=== PATIENT | male | born 1970 | race American Indian/Alaskan Native ===

== ENCOUNTER 2017-09-03 10:17 | Emergency (ER) | payer BC ==
--- NOTE | 2017-09-03 11:55 | Emergency Department Report ---
ED General Adult HPI - General Chief complaint: Medical Clearance Stated complaint: STROKE LIKE SYMPTOMS Time Seen by Provider: 09/03/17 11:07 Source: patient Mode of arrival: Ambulatory Limitations: No Limitations - History of Present Illness Initial comments: 47-year-old history of high blood pressure since was total week ago during an admission at [facility] that he had a mild stroke this morning when he was getting out of bed at 745 he started having tingling syndrome to his left face he thought he might encounter numb and minimal bit anxious he started breathing heavily, he did also have some symptoms into his left arm and left leg, he denies any symptoms at present, he recently was started on risk factor modification apparently at [facility] he is currently taking statin as well as metformin and an aspirin, he is chronically on lisinopril, he is come in today because he did have his spell it is now resolved but he was worried maybe something else was going on, his blood pressure also was a bit higher this morning at 159 systolic this worried him, blood pressure now is 134/95 he is here for evaluation of a spell this morning that is now resolved that was possibly numbness to the left side of his body -: Gradual, This morning Location: head, face, left, upper extremity, lower extremity Severity scale (0 -10): 0 Consistency: now resolved Associated Symptoms: denies other symptoms. denies: confusion, chest pain, cough, diaphoresis, fever/chills, headaches, loss of appetite, malaise, nausea/ vomiting, rash, seizure, shortness of breath, syncope, weakness Treatments Prior to Arrival: Aspirin - Related Data Home Medications Medication Instructions Recorded Confirmed Last Taken Lisinopril 1 tab PO DAILY 12/06/14 12/10/14 12/10/14 Previous Rx's Medication Instructions Recorded Last Taken Type Cyclobenzaprine [Flexeril] 10 mg PO BID PRN #20 tablet 12/19/15 Unknown Rx Ibuprofen [Motrin] 800 mg PO Q8HR PRN #30 tablet 12/19/15 Unknown Rx Allergies Allergy/AdvReac Type Severity Reaction Status Date / Time No Known Allergies Allergy Verified 09/03/17 10:20 ED Review of Systems ROS: Stated complaint: STROKE LIKE SYMPTOMS Other details as noted in HPI Comment: All other systems reviewed and negative Constitutional: denies: diaphoresis, fever, malaise Eyes: denies: eye discharge, vision change ENT: denies: dental pain, hearing loss, epistaxis Respiratory: denies: shortness of breath, SOB with exertion, SOB at rest, stridor Cardiovascular: denies: chest pain, palpitations, dyspnea on exertion, orthopnea , edema, syncope Gastrointestinal: denies: abdominal pain, nausea, vomiting, diarrhea, constipation, hematemesis, melena Skin: denies: rash, lesions, change in color, pruritus Neurological: denies: headache, weakness, numbness, paresthesias, confusion, abnormal gait, vertigo Hematological/Lymphatic: denies: easy bleeding, easy bruising, swollen glands ED Past Medical Hx - Past Medical History Previous Medical History?: Yes Hx Hypertension: Yes Hx Asthma: No Hx COPD: No Hx HIV: No - Surgical History Past Surgical History?: No - Social History Smoking Status: Never Smoker Substance Use Type: None - Medications Home Medications: Home Medications Medication Instructions Recorded Confirmed Last Taken Type Lisinopril 1 tab PO DAILY 12/06/14 12/10/14 12/10/14 History Cyclobenzaprine [Flexeril] 10 mg PO BID PRN #20 tablet 12/19/15 Unknown Rx Ibuprofen [Motrin] 800 mg PO Q8HR PRN #30 tablet 12/19/15 Unknown Rx ED Physical Exam - General Limitations: No Limitations General appearance: alert, in no apparent distress, anxious - Head Head exam: Present: atraumatic, normocephalic - Eye Eye exam: Present: normal appearance, PERRL, EOMI - ENT ENT exam: Present: normal exam, normal orophraynx - Neck Neck exam: Present: normal inspection. Absent: tenderness, meningismus - Respiratory Respiratory exam: Present: normal lung sounds bilaterally. Absent: respiratory distress, wheezes, rales, rhonchi, stridor, chest wall tenderness, accessory muscle use, decreased breath sounds, prolonged expiratory - Cardiovascular Cardiovascular Exam: Present: regular rate, normal rhythm - GI/Abdominal GI/Abdominal exam: Present: soft. Absent: distended, tenderness, guarding, rebound, rigid, organomegaly, mass, pulsatile mass - Extremities Exam Extremities exam: Present: normal inspection, normal capillary refill, other ( pulses equal bilaterally) - Back Exam Back exam: Present: normal inspection. Absent: CVA tenderness (R), CVA tenderness (L), muscle spasm, paraspinal tenderness, vertebral tenderness, rash noted - Neurological Exam Neurological exam: Present: alert, oriented X3, CN II-XII intact, normal gait. Absent: motor sensory deficit - Psychiatric Psychiatric exam: Present: normal affect, normal mood - Skin Skin exam: Present: warm. Absent: dry, intact, normal color, rash, cyanosis, diaphoretic, erythema, urticaria, vesicles, petechiae ED Course Vital Signs 09/03/17 10:20 Temperature 98 F Pulse Rate 98 H Respiratory 20 Rate Blood Pressure 134/95 O2 Sat by Pulse 98 Oximetry - Reevaluation(s) Reevaluation #1: 09/03/17 13:59 Patient was evaluated immediately on arrival his symptoms did resolve ED Medical Decision Making - Lab Data Result diagrams: 09/03/17 12:04 09/03/17 12:04 - EKG Data -: EKG Interpreted by Me EKG shows normal: sinus rhythm - EKG Data When compared to previous EKG there are: previous EKG unavailable Interpretation: nonspecific ST-T wave eva, LVH 09/03/17 13:59 nio Acute ischemic change - Radiology Data Radiology results: report reviewed - Medical Decision Making Old records were obtained from [facility] patient did apparently have a full TIA workup he was placed on risk factor modification, unclear if today's episode did represent a recurrent TIA versus some other type of spell, he stated state he was anxious and hyperventilating, physical exam was totally normal. No focal neural findings, he had no sensory deficits appreciated no motor deficits or cerebellar findings appreciated, he will need to follow up with his regular doctor, unclear etiology for today's spell however and well [facility] that he did not apparently find any type of interventions otherwise required and placed him on only risk factor modification he will be encouraged to continue that and see his regular doctor and return immediately if new alarming symptoms again is producing over the physical exam is negative at this time no signs of CVA at this time, the laboratory studies and CT head are unremarkable and unchanged from previous did verbalize understanding of need for continue his current medications attempting to lose weight and maintain his blood pressure he was aware of risks of diabetes and blood pressure and hyperlipidemia and did verbalize understanding including heart problems kidney problems stroke and Critical care attestation.: If time is entered above; I have spent that time in minutes in the direct care of this critically ill patient, excluding procedure time. ED Disposition Clinical Impression: Numbness and tingling Disposition: DC-01 TO HOME OR SELFCARE Is pt being admited?: No Condition: Stable Instructions: Paresthesia (ED), Transient Ischemic Attack (ED) Additional Instructions: See her regular doctor Dr. Nevarez and return immediately if new alarming symptoms or call 911 Referrals: PRIMARY CARE, [Primary Care Provider] - 3-5 Days COLETTE RUBIN MD [Staff Physician] - 3-5 Days Time of Disposition: 14:04
[2017-09-03 12:15] LABS: Basophils % (Auto) 0.8 % (0.0-1.8); Eosinophils # (Auto) 0.1 K/mm3 (0.0-0.4); Eosinophils % (Auto) 1.1 % (0.0-4.3); Hematocrit 47.1 % (35.5-45.6); Hemoglobin 15.9 gm/dl (11.8-15.2); Lymphocytes # (Auto) 2.1 K/mm3 (1.2-5.4); Lymphocytes % (Auto) 34.7 % (13.4-35.0); Mean Corpuscular HGB Conc 34 % (32-34); Mean Corpuscular Hemoglobin 30 pg (28-32); Mean Corpuscular Volume 89 fl (84-94); Monocytes # (Auto) 0.5 K/mm3 (0.0-0.8); Monocytes % (Auto) 7.6 % (0.0-7.3); Platelet Count 278 K/mm3 (140-440); Red Cell Distribution Width 13.2 % (13.2-15.2)
--- NOTE | 2017-09-03 12:30 | Cat Scan Report ---
FINAL REPORT EXAM: CT HEAD/BRAIN WO CON HISTORY: numbness TECHNIQUE: CT examination of the head without IV contrast PRIORS: None. FINDINGS: No acute air-fluid level visualized in the included air-filled sinuses. Bone windows demonstrate no acute fracture. The brain is without mass, mass effect, hemorrhage, or acute infarct. There is no extra-axial intracranial bleed, brain bleed, or midline shift. The ventricles and sulci are age-appropriate. IMPRESSION: No acute CVA, intracranial bleed, or brain mass
[2017-09-03 12:34] LABS: Alanine Aminotransferase 31 units/L (7-56); BUN/Creatinine Ratio 12; Blood Urea Nitrogen 11 mg/dL (9-20); Calcium 9.4 mg/dL (8.4-10.2); Hemolysis Index 9
[2017-09-03 14:25] VITALS: BP 136/72
== END 2017-09-03 14:22 | disposition home or self-care (01) ==
LOC: ED 10:17
DX: R20.0 Anesthesia of skin (principal); I10 Essential (primary) hypertension
CPT/HCPCS: 36415; 70450; 80053; 84484; 85025; 93005; 93010

== ENCOUNTER 2019-08-15 18:35 | Emergency (ER) | payer BC, OTHER ==
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
[2019-08-15 19:24] VITALS: BP 119/83
--- NOTE | 2019-08-15 20:08 | Cat Scan Report ---
CT HEAD WITHOUT CONTRAST INDICATION / CLINICAL INFORMATION: headache w/ LOC. TECHNIQUE: All CT scans at this location are performed using CT dose reduction for ALARA by means of automated e xposure control. COMPARISON: None available. FINDINGS: HEMORRHAGE: No evidence of intracranial hemorrhage or extra-axial fluid collection. EXTRA-AXIAL SPACES: Cortical sulci, sylvian fissures and basilar cisterns have an unremarkable appear ance. VENTRICULAR SYSTEM: The ventricular system is of normal size and configuration. CEREBRAL PARENCHYMA: No areas of abnormal brain parenchymal attenuation are identified. There is no i ndication of recent infarction. MIDLINE SHIFT OR HERNIATION: There is no mass effect. CEREBELLUM / BRAINSTEM: Brainstem and cerebellum have an unremarkable appearance. MIDLINE STRUCTURES:No abnormalities of the pituitary gland or pineal region are identified. INTRACRANIAL VESSELS:No abnormalities are identified on this noncontrast head CT. ORBITS: visualized portions of the orbits have an unremarkable appearance. SOFT TISSUES of HEAD: No significant abnormality. CALVARIUM: Evaluation of bone windows reveals no abnormalities. PARANASAL SINUSES / MASTOID AIR CELLS: Paranasal sinuses are free from inflammatory mucosal disease. Mastoid air cells are normally pneumatized. ADDITIONAL FINDINGS: None. IMPRESSION: 1. No abnormality on head CT without contrast. Signer Name: Terry Rodriguez MD Signed: 08/15/2019 8:04 PM Workstation Name: [id number]
--- NOTE | 2019-08-15 20:09 | XRay Report ---
Right shoulder 3 views INDICATION: Right shoulder pain following injury IMPRESSION: No acute fracture or subluxation identified. Signer Name: Nabil Sneed MD Signed: 08/15/2019 8:05 PM Workstation Name: [id number]
[2019-08-15] MEDS ORDERED: IBUPROFEN 600 MG TAB PO ONE (22:29)
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
== END 2019-08-15 22:45 | disposition home or self-care (01) ==
LOC: ED 18:35
DX: S16.1XXA Strain of muscle, fascia and tendon at neck level, initial encounter (principal); S46.911A Strain of unspecified muscle, fascia and tendon at shoulder and upper arm level, right arm, initial encounter; R51 Headache; I10 Essential (primary) hypertension; Z79.1 Long term (current) use of non-steroidal anti-inflammatories (NSAID); Z79.899 Other long term (current) drug therapy; V49.49XA Driver injured in collision with other motor vehicles in traffic accident, initial encounter; Y93.89 Activity, other specified; Y92.410 Unspecified street and highway as the place of occurrence of the external cause; Y99.8 Other external cause status
CPT/HCPCS: 70450